=== PATIENT | female | born 1975 | race Hispanic/Latino ===

== ENCOUNTER 2022-11-21 16:51 | Observation (INO) | payer OTHER ==
[~2022-11-21] VITALS: Ht 154.9 cm; Wt 62.5 kg
[2022-11-21 17:32] LABS: BASOPHILS % (AUTO) 0.2 % (0.0-5.0); EOSINOPHILS % (AUTO) 0.3 % (0.0-8.0); HEMATOCRIT 35.7 % (36-48); LYMPHOCYTES % (AUTO) 22.9 % (21.0-51.0); MEAN CORPUSCULAR HEMOGLOBIN 28.8 pg (27.0-33.0); MEAN CORPUSCULAR HGB CONC 33.3 g/dL (32.0-36.0); MEAN CORPUSCULAR VOLUME 86.4 fL (79-99); NEUTROPHILS % (AUTO) 69.3 % (40.0-77.0); PLATELET COUNT (AUTO) 345 K/uL (130-400); RED BLOOD CELL COUNT(AUTO) 4.13 MIL/uL (4.00-5.50); RED CELL DISTRIBUTION WIDTH 13.1 % (11.0-15.5); WHITE BLOOD COUNT (AUTO) 8.9 K/uL (4.8-10.8)
[2022-11-21 17:48] LABS: CREATININE 0.6 mg/dL (0.5-1.5); INR 0.99 (0.85-1.15); POTASSIUM 3.2 mmol/L (3.5-5.1); PROTHROMBIN TIME 10.8 SEC (9.6-11.6)
[2022-11-21 17:49] LABS: PARTIAL THROMBOPLASTIN TIME 27.6 SEC (26.3-35.5)
[2022-11-21] MEDS: 0.9%NACL 1000ML 1,000 ML IV SCH (18:05)
[2022-11-21] MEDS: ACETAMINOPHEN 325 MG TAB PO PRN (18:37)
[2022-11-21 20:00] VITALS: BP 158/92
[2022-11-22] VITALS: BP 131/89
[2022-11-22] MEDS: ACETAMINOPHEN 325 MG TAB PO PRN (00:09)
[2022-11-22] MEDS ORDERED: ONDANSETRON 4MG INJ IVP PRN (03:00)
[2022-11-22 04:00] VITALS: BP 148/91
[2022-11-22] MEDS: ACETAMINOPHEN WITH CODEINE 1 TAB TAB PO PRN ×2 (04:33→12:13)
[2022-11-22 05:15] LABS: BASOPHILS % (AUTO) 0.3 % (0.0-5.0); EOSINOPHILS % (AUTO) 0.8 % (0.0-8.0); LYMPHOCYTES % (AUTO) 35.3 % (21.0-51.0); MEAN CORPUSCULAR HEMOGLOBIN 29.2 pg (27.0-33.0); MEAN CORPUSCULAR HGB CONC 33.5 g/dL (32.0-36.0); MEAN CORPUSCULAR VOLUME 87.1 fL (79-99); MONOCYTES % (AUTO) 7.4 % (3.0-13.0); NEUTROPHILS % (AUTO) 55.9 % (40.0-77.0); PLATELET COUNT (AUTO) 271 K/uL (130-400); RED BLOOD CELL COUNT(AUTO) 3.56 MIL/uL (4.00-5.50); RED CELL DISTRIBUTION WIDTH 13.1 % (11.0-15.5); WHITE BLOOD COUNT (AUTO) 6.6 K/uL (4.8-10.8)
[2022-11-22 05:31] LABS: HEMOGLOBIN A1C 5.6 % (4.0-6.0)
[2022-11-22 05:38] LABS: CREATININE 0.7 mg/dL (0.5-1.5); POTASSIUM 3.1 mmol/L (3.5-5.1)
[2022-11-22] MEDS ORDERED: POTASSIUM CHLORIDE 10% ELIXIR 20 MEQ/15 ML UDCUP PO PRN (08:00)
[2022-11-22] MEDS ORDERED: KCL 20 MEQ ERTAB PO PRN (08:00)
[2022-11-22] MEDS ORDERED: POTASSIUM CHLORIDE 20MEQ/100ML 100 ML IV PRN (08:00)
[2022-11-22 08:39] VITALS: BP 116/69
[2022-11-22] MEDS ORDERED: GUAIFENESIN-DM 200/20 MG 10 ML PO PRN (09:00)
[2022-11-22] MEDS: 0.9%NACL 1000ML 1,000 ML IV SCH (09:40)
== END 2022-11-22 12:40 | disposition home or self-care (01) ==
LOC: 3BH 16:51 → INTOOBSV 16:51
PROVIDERS: ADMIT Internal Medicine; ATTEND Internal Medicine
DX: J95.830 Postprocedural hemorrhage of a respiratory system organ or structure following a respiratory system procedure (principal); G89.18 Other acute postprocedural pain; I10 Essential (primary) hypertension; R00.0 Tachycardia, unspecified; J35.01 Chronic tonsillitis; Z90.49 Acquired absence of other specified parts of digestive tract; Z79.899 Other long term (current) drug therapy; Z98.890 Other specified postprocedural states; Y83.6 Removal of other organ (partial) (total) as the cause of abnormal reaction of the patient, or of later complication, without mention of misadventure at the time of the procedure
CPT/HCPCS: 96361 ×2; 80053; 85025 ×2; 85610; 85730; 86850; 86900; 86901; 81025; 36415 ×2; 96374; 83036; 80048; G0378 ×20; J2405